=== PATIENT | female | born 2000 | race African-American/Black ===

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

== ENCOUNTER 2021-12-03 13:23 | Emergency (ER) | payer MEDICAID ==
[~2021-12-03] VITALS: Ht 160 cm; Wt 66.0 kg
[~2021-12-03 13:23] MED LIST: PNV1TABL76 PO
[2021-12-03 13:25] VITALS: BP 113/66
== END 2021-12-03 16:00 | disposition left against medical advice (07) ==
LOC: ER 13:23
DX: J02.9 Acute pharyngitis, unspecified (principal)
CPT/HCPCS: 99283